=== PATIENT | female | born 1985 | race Caucasian/White ===

== ENCOUNTER → 2017-10-07 | Outpatient (CLI) | payer OTHER | LOC: M.ULTRA 09-30 12:28 | DX: I63.9 Cerebral infarction, unspecified (principal); G45.9 Transient cerebral ischemic attack, unspecified; J32.9 Chronic sinusitis, unspecified; H53.9 Unspecified visual disturbance ==

== ENCOUNTER 2018-06-25 08:27 | Emergency (ER) | payer OTHER ==
[~2018-06-25] VITALS: Ht 154.9 cm; Wt 59.0 kg
[2018-06-25 09:16] LABS: URINE BILIRUBIN NEGATIVE (Negative); URINE BLOOD NEGATIVE (Negative); URINE CLARITY CLEAR; URINE COLOR YELLOW; URINE GLUCOSE-RANDOM NEGATIVE (Negative); URINE KETONES NEGATIVE (Negative); URINE LEUKOCYTES-REFLEX TRACE (Negative); URINE NITRITE-REFLEX NEGATIVE (Negative); URINE PROTEIN NEGATIVE (Negative); URINE UROBILINOGEN 0.2 E.U./dl (0.2-1.0)
[2018-06-25 09:28] LABS: SQUAMOUS >10 Many /LPF (0-3)
[2018-06-25 09:29] LABS: BACTERIA-REFLEX 1-9 Few /HPF (None Seen); CASTS None Seen /LPF (None Seen); CRYSTALS None Seen /LPF (None Seen); MUCUS >6 Heavy strn/LPF (None Seen); URINE RBC 0-2 Rare /HPF (0-2); URINE WBC-REFLEX 0-5 Rare /HPF (0-5)
[2018-06-25] MEDS ORDERED: BACTRIM DS TAB1 EACH PO (09:32)
[2018-06-25] MEDS ORDERED: HYDROCODONE-AP1 EAC6 PO (09:44)
[2018-06-25 10:00] VITALS: BP 106/70
== END 2018-06-25 10:00 | disposition home or self-care (01) ==
LOC: M.ERS 08:27
PROVIDERS: Emergency Medicine Emergency Medical Services
DX: N75.0 Cyst of Bartholin's gland (principal)